=== PATIENT | male | born 1960 | race Caucasian/White ===

== ENCOUNTER 2021-08-18 19:55 | Observation (INO) | payer BC, OTHER ==
--- NOTE | 2021-08-18 20:27 | ED ---
General Adult HPI - General Chief complaint: Abdominal Pain Stated complaint: Hernia Time Seen by Provider: 08/18/21 20:25 Source: patient Mode of arrival: ambulatory Limitations: no limitations - History of Present Illness Initial comments: Patient presents to the ED complaining of having worsening left inguinal swelling and pain for the past 4 hours or so. Patient states that he has a known left inguinal hernia, and he states he has been dealing with it for the past 3 years or so. Patient states that he is normally able to reduce his inguinal hernia on his own easily, but he has not been able to do so for the past 4 hours. Patient denies trauma or injury, fever or chills, headache, chest pain, dyspnea, dizziness, upper abdominal pain, back or flank pain, nausea or vomiting, diarrhea or constipation, bloody or melanotic stool, dysuria/kaia turia/urinary frequency/urinary symptoms, penile discharge, or any other symptoms or complaints. - Related Data Home Medications Medication Instructions Recorded Confirmed No Known Home Medications 08/18/21 08/18/21 Allergies Allergy/AdvReac Type Severity Reaction Status Date / Time No Known Allergies Allergy Verified 08/18/21 21:18 Review of Systems ROS Statement: Those systems with pertinent positive or pertinent negative responses have been documented in the HPI. ROS Other: All systems not noted in ROS Statement are negative. Past Medical History Past Medical History: No Reported History Additional Past Medical History / Comment(s): Hernia History of Any Multi-Drug Resistant Organisms: None Reported Past Surgical History: No Surgical Hx Reported Past Psychological History: No Psychological Hx Reported Smoking Status: Never smoker Past Alcohol Use History: Occasional Past Drug Use History: None Reported General Exam Limitations: no limitations General appearance: alert, in no apparent distress Head exam: Present: atraumatic, normocephalic Eye exam: Present: normal appearance, EOMI ENT exam: Present: mucous membranes moist Neck exam: Present: other (Trachea is in midline) Respiratory exam: Present: normal lung sounds bilaterally. Absent: respiratory distress, wheezes, rales, rhonchi, stridor Cardiovascular Exam: Present: regular rate, normal rhythm, normal heart sounds, other (Normal radial pulses bilaterally) GI/Abdominal exam: Present: soft, hypoactive bowel sounds, other (Significant Left inguinal and left scrotal swelling and tenderness consistent with incarcerated hernia; hernia reduction was attempted myself, but I was unsuccessful). Absent: distended, guarding, rebound Back exam: Absent: CVA tenderness (R), CVA tenderness (L) Neurological exam: Present: alert, oriented X3. Absent: motor sensory deficit Psychiatric exam: Present: normal affect, normal mood Skin exam: Present: warm, dry, intact, normal color Course Vital Signs 08/18/21 20:03 Temperature 99.3 F Pulse Rate 70 Respiratory 18 Rate Blood Pressure 180/108 O2 Sat by Pulse 97 Oximetry - Reevaluation(s) Reevaluation #1: 08/18/21 20:37 Case, H&P, ED management thus far and pending ED workup were discussed with Dr. Chen (general surgery). She recommends obtaining a noncontrast CT abdomen/ pelvis and calling her back with the report. She has no further recommendations at this time. 08/18/21 21:30 Dr. Chen (general surgery) is now in the ED. She has seen the patient herself and has reviewed the patient's CT images. She states that the patient's incarcerated hernia is all omentum and no bowel. She states that she will attempt bedside reduction herself in the ED. 08/18/21 21:52 Dr. Chen was unable to reduce the patient's left inguinal hernia in the ED, and she will be taking the patient to the operating room for hernia reduction and repair. Medical Decision Making - Lab Data Result diagrams: 08/18/21 21:09 08/18/21 21:09 Lab Results 08/18/21 08/18/21 08/18/21 Range/Units 21:09 21:09 21:09 WBC 15.4 H (3.8-10.6) k/uL RBC 5.49 (4.30-5.90) m/uL Hgb 17.2 (13.0-17.5) gm/dL Hct 51.8 (39.0-53.0) % MCV 94.3 (80.0-100.0) fL MCH 31.3 (25.0-35.0) pg MCHC 33.2 (31.0-37.0) g/dL RDW 12.3 (11.5-15.5) % Plt Count 251 (150-450) k/uL MPV 8.0 Neutrophils % 90 % Lymphocytes % 4 % Monocytes % 4 % Eosinophils % 1 % Basophils % 0 % Neutrophils # 13.9 H (1.3-7.7) k/uL Lymphocytes # 0.6 L (1.0-4.8) k/uL Monocytes # 0.7 (0-1.0) k/uL Eosinophils # 0.1 (0-0.7) k/uL Basophils # 0.1 (0-0.2) k/uL PT 10.6 (9.0-12.0) sec INR 1.0 (<1.2) APTT 23.6 (22.0-30.0) sec Sodium 138 (137-145) mmol/L Potassium 3.8 (3.5-5.1) mmol/L Chloride 102 (98-107) mmol/L Carbon Dioxide 26 (22-30) mmol/L Anion Gap 10 mmol/L BUN 13 (9-20) mg/dL Creatinine 0.75 (0.66-1.25) mg/dL Est GFR (CKD-EPI)AfAm >90 (>60 ml/min/1.73 sqM) Est GFR (CKD-EPI)NonAf >90 (>60 ml/min/1.73 sqM) Glucose 99 (74-99) mg/dL Plasma Lactic Acid Rudolph (0.7-2.0) mmol/L Calcium 10.0 (8.4-10.2) mg/dL Total Bilirubin 0.8 (0.2-1.3) mg/dL AST 26 (17-59) U/L ALT 23 (4-49) U/L Alkaline Phosphatase 66 (38-126) U/L Total Protein 7.2 (6.3-8.2) g/dL Albumin 4.5 (3.5-5.0) g/dL 08/18/21 Range/Units 21:09 WBC (3.8-10.6) k/uL RBC (4.30-5.90) m/uL Hgb (13.0-17.5) gm/dL Hct (39.0-53.0) % MCV (80.0-100.0) fL MCH (25.0-35.0) pg MCHC (31.0-37.0) g/dL RDW (11.5-15.5) % Plt Count (150-450) k/uL MPV Neutrophils % % Lymphocytes % % Monocytes % % Eosinophils % % Basophils % % Neutrophils # (1.3-7.7) k/uL Lymphocytes # (1.0-4.8) k/uL Monocytes # (0-1.0) k/uL Eosinophils # (0-0.7) k/uL Basophils # (0-0.2) k/uL PT (9.0-12.0) sec INR (<1.2) APTT (22.0-30.0) sec Sodium (137-145) mmol/L Potassium (3.5-5.1) mmol/L Chloride (98-107) mmol/L Carbon Dioxide (22-30) mmol/L Anion Gap mmol/L BUN (9-20) mg/dL Creatinine (0.66-1.25) mg/dL Est GFR (CKD-EPI)AfAm (>60 ml/min/1.73 sqM) Est GFR (CKD-EPI)NonAf (>60 ml/min/1.73 sqM) Glucose (74-99) mg/dL Plasma Lactic Acid Rudolph 1.6 (0.7-2.0) mmol/L Calcium (8.4-10.2) mg/dL Total Bilirubin (0.2-1.3) mg/dL AST (17-59) U/L ALT (4-49) U/L Alkaline Phosphatase (38-126) U/L Total Protein (6.3-8.2) g/dL Albumin (3.5-5.0) g/dL - Radiology Data Noncontrast CT abdomen/pelvis: Large left scrotal hernia containing omental fat and also some fluid. Normal appendix. Disposition Clinical Impression: Incarcerated left inguinal hernia Disposition: ADMITTED IP TO THIS [facility] Condition: Stable Is patient prescribed a controlled substance at d/c from ED?: No Referrals: Ander Senior MD [Primary Care Provider] - 1-2 days Time of Disposition: 21:53
[2021-08-18] MEDS ORDERED: SODIUM CHLORIDE 0.9% 1,000 ML IV ONE (20:36)
[2021-08-18] MEDS ORDERED: HYDROmorphone 1 MG/ML 1 ML SYRINGE IVP STA ×2 (20:36→21:37)
[2021-08-18 21:20] LABS: Basophils # (A) 0.1 k/uL (0-0.2); Basophils % (A) 0 %; Eosinophils # (A) 0.1 k/uL (0-0.7); Eosinophils % (A) 1 %; HCT 51.8 % (39.0-53.0); HGB 17.2 gm/dL (13.0-17.5); Lymphocytes # (A) 0.6 k/uL (1.0-4.8); Lymphocytes % (A) 4 %; MCH 31.3 pg (25.0-35.0); MCHC 33.2 g/dL (31.0-37.0); MCV 94.3 fL (80.0-100.0); Monocytes # (A) 0.7 k/uL (0-1.0); Monocytes % (A) 4 %; Neutrophils # (A) 13.9 k/uL (1.3-7.7); Neutrophils % (A) 90 %; Platelet Count 251 k/uL (150-450); RBC 5.49 m/uL (4.30-5.90); RDW 12.3 % (11.5-15.5); WBC 15.4 k/uL (3.8-10.6)
[2021-08-18 21:29] LABS: ALT 23 U/L (4-49); AST 26 U/L (17-59); African American GFR (CKD) >90 (>60 ml/min/1.73 sqM); Albumin 4.5 g/dL (3.5-5.0); Alkaline Phosphatase 66 U/L (38-126); Anion Gap 10 mmol/L; Blood Urea Nitrogen 13 mg/dL (9-20); Carbon Dioxide 26 mmol/L (22-30); Chloride 102 mmol/L (98-107); Glucose 99 mg/dL (74-99); Non-African American GFR(CKD) >90 (>60 ml/min/1.73 sqM); Potassium 3.8 mmol/L (3.5-5.1); Sodium 138 mmol/L (137-145); Total Bilirubin 0.8 mg/dL (0.2-1.3); Total Protein 7.2 g/dL (6.3-8.2)
[2021-08-18] MEDS ORDERED: MIDAZOLAM 1 MG/ML 5 ML VIAL IV STA (21:36)
[2021-08-18 21:39] LABS: Partial Thromboplastin Time 23.6 sec (22.0-30.0); Prothrombin Time 10.6 sec (9.0-12.0)
--- NOTE | 2021-08-18 21:46 | CT ---
EXAMINATION TYPE: CT abdomen pelvis wo con DATE OF EXAM: 08/18/2021 COMPARISON: None HISTORY: groin pain CT DLP: 658.5 mGycm Automated exposure control for dose reduction was used. Images obtained from the diaphragm to the floor the pelvis without contrast. Lung bases are clear. There is no pleural effusion. Heart size is normal. There is no pericardial eff usion. Liver spleen stomach pancreas gallbladder appear normal. The bile ducts are not dilated. There is no adrenal mass. Kidneys have normal size. There is no hydronephrosis. There is 2 mm calculu s lateral right kidney. There is no retroperitoneal adenopathy. Ureters are not dilated. Bladder dist ends smoothly. There is large left scrotal hernia that contains fluid and fat. There is no free fluid in the pelvis. There is no mesenteric edema. There is no ascites or free air. There is no evidence of a bowel obstru ction. Appendix is posterior and appears normal. Lumbar vertebra have fairly normal alignment. Posterior elements are intact. There is narrowing at L4 -5 disc. The bony pelvis is intact. The hip joints are intact. Sacroiliac joints are intact. IMPRESSION: Large left scrotal hernia containing omental fat and also some fluid. Normal appendix.
[2021-08-18] MEDS ORDERED: MORPHINE SULFATE 4 MG/ML SYRINGE IV PRN (22:02)
[2021-08-18] MEDS ORDERED: NALOXONE 0.4 MG/ML 1 ML VIAL IV PRN (22:02)
--- NOTE | 2021-08-18 22:10 | P.GSHP ---
History of Present Illness H&P Date: 08/18/21 Chief Complaint: Hernia The patient is a 60-year-old man who has a known hernia for 3 years. Typically he is able to reduce it when it bulges out. It occurred again this afternoon and got very hard and sore and he was not able to reduce it. He is having quite a bit of pain so came into the ER. He had a prior right inguinal hernia repair as a child. - Review of Systems All systems: negative Past Medical History Past Medical History: No Reported History Additional Past Medical History / Comment(s): Hernia History of Any Multi-Drug Resistant Organisms: None Reported Past Surgical History: No Surgical Hx Reported Past Psychological History: No Psychological Hx Reported Smoking Status: Never smoker Past Alcohol Use History: Occasional Past Drug Use History: None Reported Medications and Allergies Home Medications Medication Instructions Recorded Confirmed Type No Known Home Medications 08/18/21 08/18/21 History Allergies Allergy/AdvReac Type Severity Reaction Status Date / Time No Known Allergies Allergy Verified 08/18/21 21:18 Surgical - Exam Osteopathic Statement: *. No significant issues noted on an osteopathic structural exam other than those noted in the History and Physical/Consult. Vital Signs Temp Pulse Resp BP Pulse Ox 99.3 F 70 18 180/108 97 08/18/21 20:03 08/18/21 20:03 08/18/21 20:03 08/18/21 20:03 08/18/21 20:03 - General no distress - Eyes normal ocular movement - Neck trachea midline - Respiratory normal respiratory effort, clear to auscultation - Cardiovascular Rhythm: regular - Abdomen Abdomen: soft, bowel sounds Hernia: inguinal, incarcerated (On the left) Results - Labs 08/18/21 21:09 08/18/21 21:09 Abnormal Lab Results - Last 24 Hours (Table) 08/18/21 Range/Units 21:09 WBC 15.4 H (3.8-10.6) k/uL Neutrophils # 13.9 H (1.3-7.7) k/uL Lymphocytes # 0.6 L (1.0-4.8) k/uL Diabetes panel 08/18/21 Range/Units 21:09 Sodium 138 (137-145) mmol/L Potassium 3.8 (3.5-5.1) mmol/L Chloride 102 (98-107) mmol/L Carbon Dioxide 26 (22-30) mmol/L BUN 13 (9-20) mg/dL Creatinine 0.75 (0.66-1.25) mg/dL Glucose 99 (74-99) mg/dL Calcium 10.0 (8.4-10.2) mg/dL AST 26 (17-59) U/L ALT 23 (4-49) U/L Alkaline Phosphatase 66 (38-126) U/L Total Protein 7.2 (6.3-8.2) g/dL Albumin 4.5 (3.5-5.0) g/dL Calcium panel 08/18/21 Range/Units 21:09 Calcium 10.0 (8.4-10.2) mg/dL Albumin 4.5 (3.5-5.0) g/dL Pituitary panel 08/18/21 Range/Units 21:09 Sodium 138 (137-145) mmol/L Potassium 3.8 (3.5-5.1) mmol/L Chloride 102 (98-107) mmol/L Carbon Dioxide 26 (22-30) mmol/L BUN 13 (9-20) mg/dL Creatinine 0.75 (0.66-1.25) mg/dL Glucose 99 (74-99) mg/dL Calcium 10.0 (8.4-10.2) mg/dL Adrenal panel 08/18/21 Range/Units 21:09 Sodium 138 (137-145) mmol/L Potassium 3.8 (3.5-5.1) mmol/L Chloride 102 (98-107) mmol/L Carbon Dioxide 26 (22-30) mmol/L BUN 13 (9-20) mg/dL Creatinine 0.75 (0.66-1.25) mg/dL Glucose 99 (74-99) mg/dL Calcium 10.0 (8.4-10.2) mg/dL Total Bilirubin 0.8 (0.2-1.3) mg/dL AST 26 (17-59) U/L ALT 23 (4-49) U/L Alkaline Phosphatase 66 (38-126) U/L Total Protein 7.2 (6.3-8.2) g/dL Albumin 4.5 (3.5-5.0) g/dL - Imaging CT scan - abdomen: image reviewed Assessment and Plan (1) Right inguinal hernia Current Visit: Yes Status: Acute Code(s): K40.90 - UNIL INGUINAL HERNIA, W/O OBST OR GANGR, NOT SPCF RECUR SNOMED Code(s): 940487859 (2) Incarcerated left inguinal hernia Current Visit: Yes Status: Acute Code(s): K40.30 - UNIL INGUINAL HERNIA, W OBST, W/O GANGR, NOT SPCF RECUR SNOMED Code(s): 905079729 Plan: The patient was given some IV sedation and attempt was made to reduce the hernia. I was unable to do this. Therefore a recommended he undergo a groin exploration with hernia repair. The procedure, risks and complications were discussed along with the usual postoperative course and pain expectations. Questions were encouraged and answered.
[2021-08-18] MEDS: SODIUM CHLORIDE 0.9% 1,000 ML IV SCH (23:03)
[2021-08-18] MEDS ORDERED: PROPOFOL 10 MG/ML 20 ML VIAL IV ONE (23:06)
[2021-08-18] MEDS ORDERED: DEXAMETHASONE SOD PHOS (MDV) 100 MG/10 ML VIAL ONE (23:06)
[2021-08-18] MEDS ORDERED: ROCURONIUM 10 MG/ML (5 ML VIAL) IV ONE (23:06)
[2021-08-18] MEDS ORDERED: NEOSTIGMINE 1 MG/ML 10 ML VIAL ONE (23:06)
[2021-08-18] MEDS ORDERED: GLYCOPYRROLATE 0.2 MG/ML 2 ML VIAL ONE (23:06)
[2021-08-18] MEDS ORDERED: MIDAZOLAM 2 MG/2 ML VIAL ONE (23:06)
[2021-08-18] MEDS ORDERED: ONDANSETRON 4 MG/2 ML VIAL ONE (23:06)
[2021-08-18] MEDS ORDERED: LIDOCAINE 1% INJ 10MG/ML (20 ML MDV) ONE (23:06)
[2021-08-18] MEDS ORDERED: fentaNYL (PF) 50 MCG/ML 2 ML AMP ONE (23:06)
[2021-08-18] MEDS ORDERED: SUCCINYLCHOLINE CHLORIDE 100 MG/5 ML SYR IV ONE (23:06)
[2021-08-18] MEDS ORDERED: KETOROLAC 15 MG/ML 1 ML VIAL ONE (23:06)
[2021-08-18] MEDS ORDERED: IV FLUID CONTINUATION 1,000 ML IV ONE ×2 (23:11)
[2021-08-18] MEDS ORDERED: BUPIVACAIN-EPI 0.25%-1:200,000 30 ML VIAL SQ ONE ×2 (23:27)
[2021-08-19] MEDS ORDERED: HYDROcodone/APAP 5-325MG 1 EACH TAB PO PRN ×2 (00:31)
[2021-08-19] MEDS ORDERED: ONDANSETRON 4 MG/2 ML VIAL IVP PRN (00:31)
--- NOTE | 2021-08-19 00:38 | P.OP ---
Date of Procedure: 08/18/21 Preoperative Diagnosis: Incarcerated left inguinal hernia Postoperative Diagnosis: Incarcerated left inguinal hernia Procedure(s) Performed: Left inguinal herniorrhaphy with mesh placement and drain placement Anesthesia: JOSE ALFREDO Surgeon: Kelin Chen Estimated Blood Loss (ml): 25 Condition: stable Disposition: PACU Indications for Procedure: The patient presented with an incarcerated hernia which was not reducible Description of Procedure: The patient's taken the operative suite where he is prepped and draped in the usual sterile manner under a general endotracheal anesthetic. Local anesthetic was instilled in the skin and subcutaneous tissue. An incision was made in the left groin. There is a large distended hernia sac. This is entered using a scalpel with findings of incarcerated omentum showing some necrosis and a lot of blood-tinged fluid. The external ring was able to be identified and the external oblique was opened sharply. The omentum was then dissected free and resected using LigaSure. The hernia sac was then dissected free from the cord and cord structures. It was then suture ligated with 0 Vicryl. The floor of the inguinal canal was very lax with a markedly dilated internal ring. The tissue was dissected free. The internal ring was then suture ligated with 0 Vicryl. The floor was plicated with 0 Vicryl. A mesh was then placed and sutured to the floor using 0 Vicryl. A tail was brought her on each side of the cord and cord structures. This was sutured laterally. Decision was made to exteriorize the cord due to the poor quality of tissue in the inguinal canal. The fascia was closed taking bites of mesh to obliterate the canal. Because the hernia sac followed the cord down towards the testicle, decision was made to place a drain at least overnight. A small stab incision was made in the drain was brought out. The subcutaneous tissues were then approximated using 3-0 Vicryl. The skin was closed with 4-0 Vicryl in a subcuticular manner. Steri- Strips and dressings were applied. He tolerated the procedure without difficult y and was taken recovery room in satisfactory condition. According to or personnel, all counts were correct.
[2021-08-19 03:07] VITALS: RESP 20
[2021-08-19 04:17] LABS: Basophils % (A) 0 %; Eosinophils % (A) 0 %; HCT 47.6 % (39.0-53.0); HGB 15.6 gm/dL (13.0-17.5); Lymphocytes # (A) 0.3 k/uL (1.0-4.8); Lymphocytes % (A) 2 %; MCH 31.7 pg (25.0-35.0); MCHC 32.8 g/dL (31.0-37.0); MCV 96.4 fL (80.0-100.0); Monocytes # (A) 0.2 k/uL (0-1.0); Monocytes % (A) 2 %; Neutrophils # (A) 11.1 k/uL (1.3-7.7); Neutrophils % (A) 95 %; Platelet Count 245 k/uL (150-450); RBC 4.93 m/uL (4.30-5.90); RDW 12.5 % (11.5-15.5); WBC 11.7 k/uL (3.8-10.6)
[2021-08-19 04:20] VITALS: BP 144/76; PULSE 92; TEMP 97.9
[2021-08-19 04:41] LABS: ALT 20 U/L (4-49); AST 27 U/L (17-59); African American GFR (CKD) >90 (>60 ml/min/1.73 sqM); Albumin 3.7 g/dL (3.5-5.0); Alkaline Phosphatase 51 U/L (38-126); Anion Gap 6 mmol/L; Blood Urea Nitrogen 13 mg/dL (9-20); Calcium 8.5 mg/dL (8.4-10.2); Carbon Dioxide 24 mmol/L (22-30); Chloride 106 mmol/L (98-107); Glucose 127 mg/dL (74-99); Non-African American GFR(CKD) >90 (>60 ml/min/1.73 sqM); Potassium 4.3 mmol/L (3.5-5.1); Sodium 136 mmol/L (137-145); Total Bilirubin 0.9 mg/dL (0.2-1.3); Total Protein 6.3 g/dL (6.3-8.2)
[2021-08-19 05:09] LABS: Appearance,Urine Clear (Clear); Bilirubin,Urine Negative (Negative); Blood,Urine Negative (Negative); Color,Urine Yellow; Glucose,Urine (UA) Negative (Negative); Ketones,Urine Trace (Negative); Leukocyte Esterase,Urine Negative (Negative); Nitrite,Urine Negative (Negative); Protein,Urine Trace (Negative); Specific Gravity,Urine 1.028 (1.001-1.035); Urobilinogen,Urine <2.0 mg/dL (<2.0)
[2021-08-19] MEDS ORDERED: KETOROLAC 15 MG/ML 1 ML VIAL IVP SCH (06:00)
[2021-08-19] MEDS: KETOROLAC 30 MG/ML 1 ML VIAL IVP SCH ×2 (06:13→11:32)
--- NOTE | 2021-08-19 12:48 | P.DS ---
Providers Date of admission: 08/18/21 22:02 Expected date of discharge: 08/19/21 Attending physician: Kelin Chen Primary care physician: Ander Senior - Discharge Diagnosis(es) (1) Right inguinal hernia Current Visit: Yes Status: Acute (2) Incarcerated left inguinal hernia Current Visit: Yes Status: Acute Hospital Course: The patient presented with an acutely incarcerated hernia which was nonreducible. He was taken to the OR where he was found to have incarcerated omentum. The hernia repair was Performed. He was monitored overnight. He is having scan SAEED output postoperative day 1 and so the drain was discontinued and he is felt to be stable for discharge. Patient Condition at Discharge: Good Plan - Discharge Summary Discharge Rx Participant: No New Discharge Prescriptions: New HYDROcodone/APAP 5-325MG [[place] 5-325] 1 - 2 tab PO Q4H PRN #20 tab PRN Reason: Pain Discharge Medication List HYDROcodone/APAP 5-325MG [[place] 5-325] 1 - 2 tab PO Q4H PRN #20 tab 08/19/21 [Rx] Follow up Appointment(s)/Referral(s): Ander Senior MD [Primary Care Provider] - 1-2 days Kelin Chen DO [Doctor of Osteopathic Medicine] - (1-2 weeks. Call early next week for an appointment) Activity/Diet/Wound Care/Special Instructions: Ice to the incision and scrotum for 24-48 hours. Expect some bruising and swel ling of the cord and possibly testicle. May shower starting Saturday. Do not soak in a tub for 10 days. Remove the dressing in 1 week. No lifting greater than 10 pounds or a gallon of milk for 8 weeks. Call if questions or concerns Discharge Disposition: HOME SELF-CARE
[2021-08-19] MEDS: SODIUM CHLORIDE 0.9% 1,000 ML IV SCH (12:52)
== END 2021-08-19 13:54 | disposition home or self-care (01) ==
LOC: EC 19:55 → 5NMEDONC 22:02
PROVIDERS: ADMIT Surgery; ATTEND Surgery
DX: K40.30 Unilateral inguinal hernia, with obstruction, without gangrene, not specified as recurrent (principal); K40.90 Unilateral inguinal hernia, without obstruction or gangrene, not specified as recurrent; Z20.822 Contact with and (suspected) exposure to COVID-19
CPT/HCPCS: 49507; 96376; 96361; 96374; 96375; 99285; 36415; 88305; 80053 ×2; 83605; 85025 ×2; 85610; 85730; 81003; 87635; 74176; G0378 ×2; C1781; J2250 ×2; J2710; J0690 ×2; J2405; J2001; J3010; J1885 ×2; J1170; J1100; J0330; J2704